=== PATIENT | female | born 1945 | race Caucasian/White ===

== ENCOUNTER 2020-06-28 11:20 | Day surgery (SDC) | payer OTHER ==
[2020-06-27 13:35] LABS: Urine Appearance CLEAR (Clear); Urine Bilirubin NEGATIVE (Negataive); Urine Blood NEGATIVE (Negative); Urine Color YELLOW (Yellow); Urine Glucose NEGATIVE (Negative); Urine Protein NEGATIVE (Negative); Urine Specific Gravity 1.015 (1.005-1.030); Urine Urobilinogen 0.2 mg/dL (0.2-1.0)
[2020-06-27 13:36] LABS: Urine Microscopic Reflex NO UMIC
--- NOTE | 2020-06-27 13:40 | RAD REPORT ---
EXAM DESCRIPTION: RAD - Hand Left 2 View - 06/27/2020 1:28 pm CLINICAL HISTORY: Left hand pain FINDINGS: No fracture or dislocation is seen. A radiopaque foreign body is not visualized
--- NOTE | 2020-06-27 13:43 | RAD REPORT ---
EXAM DESCRIPTION: Baldo Soto (2 Views)06/27/2020 1:28 pm CLINICAL HISTORY: Preop for foreign body removal COMPARISON: None FINDINGS: The lungs appear clear of acute infiltrate. The heart is normal size IMPRESSION: No acute abnormalities displayed
[2020-06-27 14:09] LABS: Basophils % 0.6 % (0-1.3); Hematocrit 40.6 % (36.0-45.0); Lymphocytes % 48.5 % (15.3-44.8); MPV 7.6 fL (7.6-11.3); RBC Red Blood Cell Count 4.45 M/uL (3.86-4.86)
[2020-06-28] MEDS ORDERED: Ringers Lactate 1,000 ML IV ONE (12:32)
[2020-06-28] MEDS ORDERED: CEFAZOLIN/SWI 1gm 0 GM/0 ML SYR ONE (12:32)
[2020-06-28] MEDS ORDERED: CLINDAMYCIN INJ 300 MG in NA CHLORIDE 0.9% 50 ML IV ONE (13:15)
[2020-06-28] MEDS ORDERED: propofoL 200 MG/20 ML VIAL IV ONE (13:43)
[2020-06-28] MEDS ORDERED: FENTANYL CITR 100 MCG/2 ML ONE ×2 (13:43→15:04)
[2020-06-28] MEDS ORDERED: LIDOCAINE 1% MPF 5 ML VIAL ONE (13:43)
[2020-06-28] MEDS ORDERED: KETOROLAC 30 MG/ML INJ ONE (14:16)
[2020-06-28] MEDS ORDERED: dexAMETHasone 10 MG/ML VIAL ONE (14:16)
[2020-06-28] MEDS ORDERED: ONDANSETRON 4 MG/2 ML VIAL ONE (14:16)
[2020-06-28 15:59] VITALS: BP 120/77; TEMP 97.5; O2SAT 99
--- NOTE | 2020-06-28 17:03 | EKG ---
Test Date: 2020-06-27 Test Time: 12:03:41 Dive Master: TERRENCE MEASUREMENT RESULTS: Intervals: Rate: 78 NH: 170 QRSD: 82 QT: 386 QTc: 440 [place]: P: 41 NH: 170 QRS: -21 T: 50 INTERPRETIVE STATEMENTS: Normal sinus rhythm Normal ECG No previous ECG available for comparison Electronically Signed On 06-28-20 17:00:43 CDT by Eric Goldstein
--- NOTE | 2020-06-28 22:56 | OP ---
Surgeon: Juan Pablo Martin MD Preoperative Diagnosis: Foreign body of the left index finger, metacarpal head. Postoperative Diagnosis: Foreign body of the left index finger, metacarpal head. Procedure: Debridement of skin and subcutaneous tissue of the left index finger and bone to remove f oreign body. Anesthesia: General. Procedure In Detail: After satisfactory induction of general anesthesia, left hand was prepped with Betadine scrub and paint. Dry sterile drapes were applied in usual manner. Arm was elevated, exsang uinated with an Esmarch, tourniquet inflated to 250 mmHg. Hand was placed on a roll lock table. A c urved incision was made over the metacarpophalangeal joint. Dissection was proceeded down. There wa s inflamed area of the extensor mechanism, slightly radial at the MCP joint. Incision was made over the radial aspect of the extensor mechanism and the area was inflamed. The foreign body was a kind o f 1 mm x 1 mm brown-colored thorn. Cultures were taken of the area. The bone had eroded into the me tacarpal head. The bone was scraped with a curette. Then wound was jet lavage irrigated with 3 L of dilute Betadine solution and then the split in the extensor mechanism was closed with 5-0 PDS. Then , electrocautery was used for hemostasis. Tourniquet was released and wound closed with 4-0 Prolene vertical mattress, dressed with Xeroform, 2 inch Magdy, Kerlix. The patient tolerated procedure well and retu rned to recovery room. LEONELA/MERARY Voice ID: [id number] Report ID: [id number]
== END 2020-06-28 15:42 | disposition home or self-care (01) ==
LOC: OR 11:20
PROVIDERS: ATTEND Specialist
PROC: 0PBV0ZZ Excision of Left Finger Phalanx, Open Approach (ICD-10-PCS; 2020-06-28)
PROC: 0RCV0ZZ Extirpation of Matter from Left Metacarpophalangeal Joint, Open Approach (ICD-10-PCS; principal; 2020-06-28 13:00)
DX: S61.241A Puncture wound with foreign body of left index finger without damage to nail, initial encounter (principal); Z20.822 Contact with and (suspected) exposure to COVID-19
CPT/HCPCS: 26075; 11044; 93005; 87070; 85025; 36415; 87205; 88304; 88305; 87075; 81003; 71046; 73120; U0003; J2704; J3010 ×2; J1100; J7120; J2405; J0690